=== PATIENT | female | born 1955 | race Caucasian/White ===

== ENCOUNTER 2017-07-19 06:58 | Day surgery (SDC) | payer MEDICAID ==
[2017-07-19] MEDS ORDERED: Lactated Ringers 1,000 ML IV SCH (07:00)
[2017-07-19] MEDS ORDERED: fentaNYL 100 MCG/2 ML SDV ONE (07:58)
[2017-07-19] MEDS ORDERED: Propofol 200 MG/20 ML SDV ONE (07:58)
[2017-07-19] MEDS ORDERED: Midazolam 1 MG/ML 2 ML SDV ONE (07:59)
--- NOTE | 2017-07-20 08:11 | OR ---
DATE OF PROCEDURE: 07/19/2017 PREOPERATIVE DIAGNOSIS: Colon cancer screening. POSTOPERATIVE DIAGNOSIS: Small rectal polyp. PROCEDURE PERFORMED: Colonoscopy to the cecum with biopsy resection of a small rectal polyp. ANESTHESIA: IV anesthesia with monitored anesthesia care. INDICATION: This 61-year-old white female was referred for a colonoscopy for colon cancer screening. Her last colonoscopic exam was done 10 years ago. I counseled her for the procedure including risks and alternatives, and she gave her informed consent to proceed. DESCRIPTION OF PROCEDURE: The patient was placed in the left lateral decubitus position. IV anesthesia was administered by the Anesthesia Service. Time-out was held. A rectal exam was performed, which was unremarkable. The flexible video Olympus colonoscope was introduced through her anus, up her rectum, and out her colon, all the way to the cecum. Once the cecum was reached, the scope was slowly withdrawn, examining the mucosa throughout. No mucosal abnormalities were noted until we reached the rectum. Here, a small polyp was seen, which was removed with the biopsy forceps. The scope was retroflexed with the distal rectum appearing unremarkable. The scope was straightened and removed. She tolerated the procedure well. Benji Abdul MD /[id number]
== END 2017-07-19 10:15 | disposition home or self-care (01) ==
LOC: JP.SDS 06:58
PROVIDERS: ATTEND Surgery
DX: Z12.11 Encounter for screening for malignant neoplasm of colon (principal); K62.1 Rectal polyp; I10 Essential (primary) hypertension
CPT/HCPCS: 45380; 88305; J2250; J2704; J3010; J7120

== ENCOUNTER 2021-04-14 06:20 | Day surgery (SDC) | payer MEDICARE ==
[2021-04-14] MEDS ORDERED: Dextrose 5%-Lactated Ringers 1,000 ML IV SCH (07:00)
[2021-04-14] MEDS ORDERED: Bupivacaine 0.5% 50 ML MDV ONE (07:02)
[2021-04-14] MEDS ORDERED: Lidocaine 1% with EPINEPHrine 1:100,000 50 ML MDV ONE (07:02)
[2021-04-14] MEDS ORDERED: fentaNYL 100 MCG/2 ML SDV ONE (07:09)
[2021-04-14] MEDS ORDERED: Propofol 200 MG/20 ML SDV ONE (07:09)
[2021-04-14] MEDS ORDERED: Midazolam 1 MG/ML 2 ML SDV ONE (07:09)
[2021-04-14 07:25] LABS: CORONAVIRUS COVID-19 NAA NEGATIVE (NEGATIVE)
[2021-04-14] MEDS ORDERED: ceFAZolin 2 GM in Premix Bag 1 BAG IV ONE (07:30)
--- NOTE | 2021-04-16 11:43 | OR ---
DATE OF PROCEDURE: 04/14/2021 SURGEON: Mario Wing MD PREOPERATIVE DIAGNOSIS: Indications for central venous access. POSTOPERATIVE DIAGNOSIS: Indications for central venous access. PROCEDURE PERFORMED: Placement of Bard PowerPort via left subclavian vein approach ([id number]). ANESTHESIA: Local plus IV sedation. INDICATION FOR PROCEDURE: A 65-year-old female presenting with indication for some for treatment of a stage IV pancreatic carcinoma. The plan is to proceed with Bard PowerPort placement. Potential risks including bleeding, infection, pneumohemothorax, and neurovascular injury were discussed. Problems with port becoming infected or occluded were also gone over, and the patient wishes to proceed. DETAILS OF PROCEDURE: The patient was taken to the operating room and placed in the supine position. After IV sedation was administered, the upper chest and neck areas were prepped and draped. The left subclavian vein area was anesthetized with 1% lidocaine mixed with Marcaine. The left subclavian vein cannulated. A guidewire passed and manipulated into the superior vena cava. Some additional local was then injected, and a transverse infraclavicular incision was made and carried down through the skin and subcutaneous tissue and through the pectoralis major fascia. Below the fascia, a port pocket was then constructed bluntly, and the port was placed into the pocket and the catheter cut such that the tip would lay in the area of the superior vena cava and right atrial junction. Over an introducer and a peel-away catheter, the Bard port catheter was then placed, and good position was confirmed. The incision was then closed with some 3-0 and 4-0 Vicryl stitch deep and 4-0 Vicryl subcuticular stitch. Dressing was applied. The port was then once again aspirated, good blood return was confirmed, and once again, flushed with heparinized saline. The patient was taken to the recovery room in satisfactory condition. There were no evident complications. Mario Wing MD Job #: [id number]
== END 2021-04-14 10:51 | disposition home or self-care (01) ==
LOC: JP.SDS 06:20
PROVIDERS: ATTEND Surgery
DX: C25.9 Malignant neoplasm of pancreas, unspecified (principal); I10 Essential (primary) hypertension; E78.5 Hyperlipidemia, unspecified; E11.9 Type 2 diabetes mellitus without complications; F17.200 Nicotine dependence, unspecified, uncomplicated; Z01.812 Encounter for preprocedural laboratory examination; Z20.822 Contact with and (suspected) exposure to COVID-19
CPT/HCPCS: 0241U; 36561; 77001; C1788; J0690; J1642; J2250; J2704; J3010; J3490; J7121

== ENCOUNTER 2021-11-25 13:00 | Emergency (ER) | payer MEDICARE ==
[2021-11-25] MEDS ORDERED: cefTRIAXone 1 GM Vial IM ONE (15:02)
[2021-11-25 15:39] LABS: CORONAVIRUS COVID-19 NAA NEGATIVE (NEGATIVE)
== END 2021-11-25 17:00 | disposition home or self-care (01) ==
LOC: JP.ED 13:00
DX: N30.00 Acute cystitis without hematuria (principal); J18.9 Pneumonia, unspecified organism; E78.00 Pure hypercholesterolemia, unspecified; I10 Essential (primary) hypertension; E10.9 Type 1 diabetes mellitus without complications; Z79.899 Other long term (current) drug therapy; Z20.822 Contact with and (suspected) exposure to COVID-19
CPT/HCPCS: 0241U; 71045; 71045-26; 81001; 87086; 87088; 87186; 96372; 99282; 99285-25

== ENCOUNTER 2022-04-27 09:58 | Emergency (ER) | payer MEDICARE ==
[2022-04-27] MEDS ORDERED: fentaNYL 50 MCG/ML SDV IM ONE (11:40)
== END 2022-04-27 13:10 | disposition home or self-care (01) ==
LOC: JP.ED 09:58
DX: R18.8 Other ascites (principal); E78.00 Pure hypercholesterolemia, unspecified; I10 Essential (primary) hypertension; M19.90 Unspecified osteoarthritis, unspecified site; E11.9 Type 2 diabetes mellitus without complications; Z87.891 Personal history of nicotine dependence; Z79.899 Other long term (current) drug therapy; Z79.01 Long term (current) use of anticoagulants; Z79.4 Long term (current) use of insulin
CPT/HCPCS: 96372; 99283; J3010

== ENCOUNTER 2022-05-18 08:08 | Inpatient (IN) | payer MEDICARE ==
[~2022-05-18 08:08] MED LIST: Meropenem 500 MG SDV ONE
[2022-05-18] MEDS ORDERED: Acetaminophen 500 MG Tab PO ONE (08:55)
[2022-05-18] MEDS ORDERED: Dextrose 5%-Lactated Ringers 1,000 ML IV SCH (09:00)
[2022-05-18 09:39] LABS: ESTIMATED GFR 95 mL/min (>60)
[2022-05-18] MEDS ORDERED: ceFAZolin 2 GM in Premix Bag 1 BAG IV ONE (10:00)
[2022-05-18] MEDS ORDERED: ceFAZolin 2 GM in Sodium Chloride 0.9% 50 ML IV ONE (10:00)
[2022-05-18] MEDS ORDERED: fentaNYL 250 MCG/5 ML SDV ONE (10:16)
[2022-05-18] MEDS ORDERED: Dexamethasone 4 MG/ML SDV ONE (10:17)
[2022-05-18] MEDS ORDERED: Succinylcholine 200 MG/10 ML MDV ONE (10:17)
[2022-05-18] MEDS ORDERED: Glycopyrrolate 0.2 MG/ML 5 ML MDV ONE (10:17)
[2022-05-18] MEDS ORDERED: Ondansetron 4 MG/2 ML SDV ONE (10:17)
[2022-05-18] MEDS ORDERED: Propofol 200 MG/20 ML SDV ONE (10:17)
[2022-05-18] MEDS ORDERED: Neostigmine Methylsulfate 1 MG/ML 5 ML Syringe ONE (10:17)
[2022-05-18] MEDS ORDERED: Rocuronium 50 MG/5 ML Vial ONE (10:17)
[2022-05-18] MEDS ORDERED: Lidocaine 1% 50 ML MDV ONE (11:45)
[2022-05-18] MEDS ORDERED: Bupivacaine 0.5%/EPINEPHrine 1:200,000 50 ML MDV ONE (11:45)
[2022-05-18] MEDS ORDERED: fentaNYL 50 MCG/ML SDV IVPUSH ONE (13:10)
[2022-05-18] MEDS ORDERED: Linezolid 600 MG/300 ML Premix Bag IRR ONE (13:15)
[2022-05-18] MEDS: oxyCODONE 5 MG Tab PO PRN ×2 (15:07→20:59)
[2022-05-18] MEDS ORDERED: Glucose Gel 15 GM in 37.5 GM Tube PO PRN (15:11)
[2022-05-18] MEDS ORDERED: Glucagon,Human Recombinant 1 MG Vial IM PRN (15:11)
[2022-05-18] MEDS ORDERED: 50% Dextrose in Water 50 ML Syringe IVPUSH PRN (15:11)
[2022-05-18] MEDS: Acetaminophen 325 MG Tab PO SCH ×2 (16:46→21:09)
[2022-05-18] MEDS: metFORMIN 500 MG Tab PO SCH (16:46)
[2022-05-18] MEDS: Insulin Lispro 100 Unit/ML 3 ML KwikPen SUBCUT SCH ×2 (16:47→21:05)
[2022-05-18] MEDS: ceFAZolin 1 GM in Premix Bag 1 BAG IV SCH (18:23)
[2022-05-18] MEDS: Ondansetron 4 MG/2 ML SDV IVPUSH PRN ×2 (18:23→23:56)
[2022-05-18] MEDS: Metoclopramide 10 MG/2 ML SDV IVPUSH PRN (20:58)
[2022-05-18] MEDS: Insulin Glargine,Human Rec. Analog 100 Units/ML 3 ML Pen SUBCUT SCH (21:02)
[2022-05-18] MEDS: Latanoprost 0.005% Ophth Soln 2.5 ML Bottle EYEBOTH SCH (21:09)
[2022-05-18] MEDS: Lactated Ringers 1,000 ML IV SCH (23:56)
[2022-05-19] MEDS: ceFAZolin 1 GM in Premix Bag 1 BAG IV SCH ×2 (02:42→10:27)
[2022-05-19] MEDS: Metoclopramide 10 MG/2 ML SDV IVPUSH PRN (02:51)
[2022-05-19] MEDS: oxyCODONE 5 MG Tab PO PRN ×4 (02:51→23:45)
[2022-05-19] MEDS: Acetaminophen 325 MG Tab PO SCH ×4 (04:05→21:32)
[2022-05-19 06:28] LABS: ESTIMATED GFR 99 mL/min (>60)
[2022-05-19] MEDS ORDERED: Scopolamine 1.5 MG Transdermal Patch TRDERM PRN (07:03)
[2022-05-19] MEDS: Potassium Chloride 10 MEQ in Premix Bag 1 BAG IV SCH ×6 (08:44→16:13)
[2022-05-19] MEDS: Ondansetron 4 MG/2 ML SDV IVPUSH SCH ×5 (08:46→23:51)
[2022-05-19] MEDS: metFORMIN 500 MG Tab PO SCH ×2 (08:47→17:14)
[2022-05-19] MEDS: Metoclopramide 10 MG/2 ML SDV IVPUSH SCH ×3 (08:48→21:28)
[2022-05-19] MEDS: Atenolol 25 MG Tab PO SCH (08:50)
[2022-05-19] MEDS: Insulin Lispro 100 Unit/ML 3 ML KwikPen SUBCUT SCH ×4 (08:57→21:23)
[2022-05-19] MEDS: Lactated Ringers 1,000 ML IV SCH ×2 (09:01→23:45)
[2022-05-19] MEDS: Insulin Glargine,Human Rec. Analog 100 Units/ML 3 ML Pen SUBCUT SCH (21:24)
[2022-05-19] MEDS: Latanoprost 0.005% Ophth Soln 2.5 ML Bottle EYEBOTH SCH (21:26)
[2022-05-20] MEDS: Ondansetron 4 MG/2 ML SDV IVPUSH SCH ×3 (04:19→11:11)
[2022-05-20] MEDS: oxyCODONE 5 MG Tab PO PRN ×3 (04:19→12:54)
[2022-05-20] MEDS: Acetaminophen 325 MG Tab PO SCH ×2 (04:20→09:48)
[2022-05-20] MEDS: Metoclopramide 10 MG/2 ML SDV IVPUSH SCH ×2 (04:20→09:09)
[2022-05-20 05:20] LABS: ESTIMATED GFR 95 mL/min (>60)
[2022-05-20] MEDS: Insulin Lispro 100 Unit/ML 3 ML KwikPen SUBCUT SCH ×2 (07:44→11:29)
[2022-05-20] MEDS: Atenolol 25 MG Tab PO SCH (08:18)
[2022-05-20] MEDS: metFORMIN 500 MG Tab PO SCH (08:19)
[2022-05-20] MEDS ORDERED: Scopolamine 1.5 MG Transdermal Patch TOP ONE (08:30)
[2022-05-20] MEDS: Potassium Phos in 0.9 % NaCl 15 MMOL in Premix Bag 1 BAG IV SCH ×4 (08:54→11:08)
[2022-05-20] MEDS ORDERED: SCOPOLAMINE PATCH CHECK TOP SCH (09:00)
== END 2022-05-20 13:30 | disposition home or self-care (01) | DRG 406 ==
LOC: JP.SDSSCHI 08:08 → JP.SDS 08:08 → UNDOADMIN 13:58 → JP.MS 13:58 → EDSTATUS 15:45
PROVIDERS: ADMIT Surgery; ATTEND Surgery
PROC: 0W1G3JW Bypass Peritoneal Cavity to Upper Vein with Synthetic Substitute, Percutaneous Approach (ICD-10-PCS; principal; 2022-05-18)
PROC: 0JHT0YZ Insertion of Other Device into Trunk Subcutaneous Tissue and Fascia, Open Approach (ICD-10-PCS; 2022-05-18)
DX: C25.9 Malignant neoplasm of pancreas, unspecified (principal); R18.0 Malignant ascites; E11.9 Type 2 diabetes mellitus without complications; M54.50 Low back pain, unspecified; I10 Essential (primary) hypertension
CPT/HCPCS: 36415; 77001; 80053; 82947; 83735; 83880; 84100; 85025; 85027; 85379; 85384; 85610; 85730; 86850; 86900; 86901; A9270-GY; J0330; J0690; J1100; J1642; J1815; J1815-GY; J2001; J2020; J2185; J2405; J2704; J2710; J2765; J3010; J3480; J3490; J7120; J7121; U0002

== ENCOUNTER 2022-06-07 07:43 | Emergency (ER) | payer MEDICARE ==
[2022-06-07] MEDS ORDERED: Sodium Chloride 0.9% 10 ML Syringe FLUSH PRN (08:08)
[2022-06-07] MEDS ORDERED: Sodium Chloride 0.9% 500 ML IV ONE (08:09)
[2022-06-07] MEDS ORDERED: Ondansetron 4 MG/2 ML SDV IVPUSH ONE (08:29)
[2022-06-07] MEDS ORDERED: Scopolamine 1.5 MG Transdermal Patch TRDERM ONE (08:30)
[2022-06-07 08:57] LABS: ESTIMATED GFR 95 mL/min (>60)
[2022-06-07] MEDS ORDERED: Potassium Chloride 10 MEQ in Premix Bag 1 BAG IV SCH (10:00)
== END 2022-06-07 12:54 | disposition home or self-care (01) ==
LOC: JP.ED 07:43
DX: E86.0 Dehydration (principal); K83.1 Obstruction of bile duct; E87.3 Alkalosis; E87.6 Hypokalemia; N39.0 Urinary tract infection, site not specified; E78.00 Pure hypercholesterolemia, unspecified; I10 Essential (primary) hypertension; E11.9 Type 2 diabetes mellitus without complications; Z79.899 Other long term (current) drug therapy; Z79.4 Long term (current) use of insulin; Z79.84 Long term (current) use of oral hypoglycemic drugs
CPT/HCPCS: 36415; 80053; 81001; 82140; 82803; 83605; 83690; 83735; 84100; 85025; 85651; 86140; 96365; 96375; 99285; A9270; J2405; J3480; J3490; J7040